=== PATIENT | male | born 1950 | race Two or more races ===

== ENCOUNTER 2020-10-03 16:25 | Emergency (ER) | payer OTHER ==
[~2020-10-03] VITALS: Ht 162.6 cm; Wt 83.9 kg
[2020-10-03] MEDS ORDERED: CARVEDILOL25 MG (16:35)
[2020-10-03] MEDS ORDERED: NORVASC5 MG PO (16:36)
== END 2020-10-03 22:45 | disposition home or self-care (01) ==
LOC: ER 16:25
DX: K57.90 Diverticulosis of intestine, part unspecified, without perforation or abscess without bleeding (principal)